=== PATIENT | male | born 1935 | race Caucasian/White ===

== ENCOUNTER 2024-09-03 10:40 | Inpatient (IN) | payer MEDICARE, OTHER, MEDICAID ==
[2024-09-03 11:13] LABS: BASOPHILS ABSOLUTE AUTO 0.02 K/uL (0.00-0.20); BASOPHILS PERCENT AUTO 0.1 % (0.0-2.0); EOSINOPHILS ABSOLUTE AUTO 0.19 K/uL (0.00-0.50); EOSINOPHILS PERCENT AUTO 0.7 % (0.0-5.0); HEMOGLOBIN 12.8 g/dL (13.1-16.8); IMMATURE GRAN ABSOLUTE AUTO 0.11 10^3/uL (0.00-0.04); IMMATURE GRAN PERCENT AUTO 0.4 % (0.0-0.4); LYMPHOCYTES ABSOLUTE AUTO 2.47 K/uL (0.50-3.50); LYMPHOCYTES PERCENT AUTO 8.5 % (10.0-50.0); MEAN CORPUSCULAR HEMOGLOBIN 25.7 pg (28.2-33.3); MEAN CORPUSCULAR VOLUME 80.3 fL (84.0-98.0); MONOCYTES ABSOLUTE AUTO 1.69 K/uL (0.00-1.00); MONOCYTES PERCENT AUTO 5.8 % (2.0-14.0); NEUTROPHILS ABSOLUTE AUTO 24.68 K/uL (1.40-7.00); NEUTROPHILS PERCENT AUTO 84.5 % (45.0-80.0); PLATELET COUNT,PLT 342 K/uL (150-350); RED BLOOD CELL COUNT 4.98 M/uL (4.33-5.41); WHITE BLOOD CELL COUNT,WBC 29.2 K/uL (4.0-10.2)
[2024-09-03] MEDS: Lidocaine 2% HCl 11 ML Jelly Filled Syringe TOP ONE (11:30)
[2024-09-03 11:34] LABS: ALANINE AMINOTRANSFERASE,ALT 7 U/L (12-78); ALBUMIN 2.7 g/dL (3.4-5.0); ALKALINE PHOSPHATASE 104 IU/L (46-116); ANION GAP 9.9 meq/L (7-15); ASPARTATE AMNIOTRANSFERASE,AST 19 U/L (15-37); BILIRUBIN TOTAL 0.5 mg/dL (0.2-1.0); BLOOD UREA NITROGEN,BUN 34 mg/dL (7-18); C-REACTIVE PROTEIN 4.46 mg/dL (0.05-0.30); CALCIUM 8.5 mg/dL (8.5-10.1); CARBON DIOXIDE,CO2 22.1 mmol/L (21.0-32.0); CHLORIDE,CL 107 mmol/L (98-107); CREATININE 1.61 mg/dL (0.51-1.17); GLUCOSE RANDOM 108 mg/dL (70-99); POTASSIUM,K 4.3 mmol/L (3.5-5.1); PROTEIN TOTAL,TP 6.8 g/dL (6.4-8.2); SODIUM,NA 139 mmol/L (136-145)
[2024-09-03 11:35] LABS: ESTIMATED GFR 41 mL/min (>=60)
[2024-09-03 11:39] LABS: LACTIC ACID 1.5 mmol/L (0.4-2.0)
[2024-09-03 11:45] LABS: APPEARANCE,URINE CLEAR; BILIRUBIN,URINE NEGATIVE (NEGATIVE); COLOR,URINE DARK YELLOW; GLUCOSE,URINE NEGATIVE (NEGATIVE); KETONES,URINE TRACE mg/dL (NEGATIVE); LEUKOCYTE ESTERASE,URINE SMALL (NEGATIVE); NITRITE,URINE NEGATIVE (NEGATIVE); OCCULT BLOOD,URINE NEGATIVE (NEGATIVE); PH,URINE 5.5 (5.0-9.0); PROTEIN,URINE NEGATIVE (NEGATIVE); UROBILINOGEN,URINE 0.2 E.U./dL (0.2-1.0)
[2024-09-03] MEDS: Sodium Chloride 0.9% 1,000 ML IV ONE (11:53)
[2024-09-03 11:54] LABS: EPITHELIAL CELLS,URINE RARE /LPF; RBC,URINE 0-5 /HPF
[2024-09-03] MEDS: Lidocaine 2% HCl 11 ML Jelly Filled Syringe ONE (11:54)
[2024-09-03 11:55] LABS: BACTERIA,URINE RARE /HPF (NONE TO FEW); MUCUS,URINE MODERATE /LPF (NEGATIVE); OTHER CRYSTALS,URINE FEW /HPF
[2024-09-03] MEDS: Levofloxacin/Dextrose 5%-Water 500 MG in Premix Bag 1 BAG IV ONE (12:05)
[2024-09-03] MEDS ORDERED: Polyethylene Glycol 3350 Powder 17 GM Packet PO PRN (12:24)
[2024-09-03] MEDS ORDERED: Ondansetron 4 MG Tab.DIS PO PRN (12:24)
[2024-09-03] MEDS: VANCOmycin 1 GM in Sodium Chloride 0.9% 250 ML IV ONE (14:16)
[2024-09-03] MEDS: Sodium Chloride 0.9% 10 ML Syringe FLUSH PRN (14:19)
[2024-09-03] MEDS ORDERED: Lactase [Lactaid] 3,000 UNIT Tablet PO PRN (15:33)
[2024-09-03] MEDS ORDERED: Polyvinyl Alcohol 1.4% Ophth Soln 15 ML Bottle EYEBOTH PRN (15:33)
[2024-09-03] MEDS ORDERED: Menthol 10%/Methyl Salicylate 15% 85 GM Tube TOP PRN (15:33)
[2024-09-03] MEDS: Doxycycline Monohydrate 100 MG Cap PO SCH (17:39)
[2024-09-03] MEDS: OLANZapine 5 MG Tab.DIS PO SCH (17:40)
[2024-09-03] MEDS: Calcium Carbonate/Vitamin D3 1500 MG-400 Units Tab PO SCH (17:40)
[2024-09-03] MEDS: Carbidopa/Levodopa 25-250 MG Tab PO SCH (17:42)
[2024-09-03] MEDS: Acetaminophen 650 MG Tab.ER PO SCH (17:42)
[2024-09-03] MEDS: Gabapentin 300 MG Cap PO SCH (17:42)
[2024-09-03] MEDS ORDERED: MICONAZOLE NITRATE 85 GM TOP SCH (18:00)
[2024-09-03] MEDS: Acetaminophen 325 MG Tab PO PRN (20:08)
[2024-09-03] MEDS: Sodium Chloride 0.9% 1,000 ML IV SCH (20:08)
[2024-09-03] MEDS: Famotidine 20 MG Tab PO SCH (20:08)
[2024-09-03] MEDS: Morphine 2 MG/ML SYRINGE IVPUSH PRN (20:08)
[2024-09-03] MEDS: Albuterol/Ipratropium 3.0-0.5 MG/3 ML Neb Soln INH PRN (22:57)
[2024-09-04] MEDS: amLODIPine 5 MG Tab PO SCH (07:36)
[2024-09-04] MEDS: Cholecalciferol (Vitamin D3) 25 MCG Tab PO SCH (07:38)
[2024-09-04] MEDS: FLUoxetine 20 MG Cap PO SCH (07:38)
[2024-09-04] MEDS: Fish Oil/Omega-3 Fatty Acids 1 Gm Cap PO SCH (07:39)
[2024-09-04] MEDS: Multivitamin Tab PO SCH (07:39)
[2024-09-04] MEDS: Enoxaparin 40 MG/0.4 ML Syringe SUBCUT SCH (07:39)
[2024-09-04] MEDS: Tamsulosin 0.4 MG Cap.ER PO SCH (07:41)
[2024-09-04] MEDS: Polyethylene Glycol 3350 Powder 17 GM Packet PO SCH (07:41)
[2024-09-04] MEDS: Finasteride 5 MG Tab PO SCH (07:42)
[2024-09-04 07:48] LABS: BASOPHILS ABSOLUTE AUTO 0.02 K/uL (0.00-0.20); BASOPHILS PERCENT AUTO 0.1 % (0.0-2.0); EOSINOPHILS ABSOLUTE AUTO 0.37 K/uL (0.00-0.50); EOSINOPHILS PERCENT AUTO 2.4 % (0.0-5.0); HEMATOCRIT 42.3 % (39.0-49.0); HEMOGLOBIN 13.2 g/dL (13.1-16.8); IMMATURE GRAN ABSOLUTE AUTO 0.05 10^3/uL (0.00-0.04); IMMATURE GRAN PERCENT AUTO 0.3 % (0.0-0.4); LYMPHOCYTES PERCENT AUTO 9.6 % (10.0-50.0); MEAN CORPUSCULAR HEMOGLOBIN 25.7 pg (28.2-33.3); MEAN CORPUSCULAR HGB CONC 31.2 g/dL (31.7-36.0); MEAN CORPUSCULAR VOLUME 82.5 fL (84.0-98.0); MONOCYTES ABSOLUTE AUTO 1.34 K/uL (0.00-1.00); MONOCYTES PERCENT AUTO 8.6 % (2.0-14.0); NEUTROPHILS ABSOLUTE AUTO 12.33 K/uL (1.40-7.00); PLATELET COUNT,PLT 244 K/uL (150-350); RED BLOOD CELL COUNT 5.13 M/uL (4.33-5.41); RED CELL DISTRIBUTION WIDTH 16.5 % (11.2-14.1); WHITE BLOOD CELL COUNT,WBC 15.6 K/uL (4.0-10.2)
[2024-09-04 08:02] LABS: ALBUMIN 2.5 g/dL (3.4-5.0); BILIRUBIN TOTAL 2.4 mg/dL (0.2-1.0); C-REACTIVE PROTEIN 10.9 mg/dL (0.05-0.30); CALCIUM 8.4 mg/dL (8.5-10.1); CARBON DIOXIDE,CO2 19.1 mmol/L (21.0-32.0); CREATININE 1.39 mg/dL (0.51-1.17); EST CRCL DRUG DOSING (CG) 36.73 mL/min; POTASSIUM,K 4.3 mmol/L (3.5-5.1); PROTEIN TOTAL,TP 6.7 g/dL (6.4-8.2)
[2024-09-04 08:05] LABS: ANION GAP 16.2 meq/L (7-15)
[2024-09-04] MEDS: RIVASTIGMINE TARTRATE 6 MG PO SCH (11:27)
[2024-09-04] MEDS ORDERED: Levofloxacin/Dextrose 5%-Water 250 MG in Premix Bag 1 BAG IV SCH (12:00)
[2024-09-04] MEDS: Levofloxacin/Dextrose 5%-Water 750 MG in Premix Bag 1 BAG IV SCH (12:01)
[2024-09-04] MEDS: traMADol 50 MG Tab PO PRN (12:16)
[2024-09-04] MEDS ORDERED: Levofloxacin/Dextrose 5%-Water 500 MG in Premix Bag 1 BAG IV SCH (12:30)
[2024-09-04] MEDS: VANCOmycin 1 GM in Sodium Chloride 0.9% 250 ML IV SCH (14:35)
[2024-09-05] MEDS: Ondansetron 4 MG/2 ML SDV IVPUSH PRN (07:51)
[2024-09-05 08:16] LABS: ALBUMIN 2.5 g/dL (3.4-5.0); ANION GAP 13.6 meq/L (7-15); BILIRUBIN TOTAL 1.2 mg/dL (0.2-1.0); C-REACTIVE PROTEIN 7.87 mg/dL (0.05-0.30); CALCIUM 8.4 mg/dL (8.5-10.1); CREATININE 1.42 mg/dL (0.51-1.17); EST CRCL DRUG DOSING (CG) 35.96 mL/min; POTASSIUM,K 3.6 mmol/L (3.5-5.1); PROTEIN TOTAL,TP 6.5 g/dL (6.4-8.2)
[2024-09-05 08:18] LABS: BASOPHILS ABSOLUTE AUTO 0.03 K/uL (0.00-0.20); BASOPHILS PERCENT AUTO 0.2 % (0.0-2.0); EOSINOPHILS ABSOLUTE AUTO 0.62 K/uL (0.00-0.50); EOSINOPHILS PERCENT AUTO 5.1 % (0.0-5.0); HEMATOCRIT 38.9 % (39.0-49.0); HEMOGLOBIN 12.4 g/dL (13.1-16.8); IMMATURE GRAN ABSOLUTE AUTO 0.06 10^3/uL (0.00-0.04); IMMATURE GRAN PERCENT AUTO 0.5 % (0.0-0.4); LYMPHOCYTES ABSOLUTE AUTO 3.27 K/uL (0.50-3.50); MEAN CORPUSCULAR HEMOGLOBIN 25.7 pg (28.2-33.3); MEAN CORPUSCULAR HGB CONC 31.9 g/dL (31.7-36.0); MEAN CORPUSCULAR VOLUME 80.5 fL (84.0-98.0); MONOCYTES ABSOLUTE AUTO 1.25 K/uL (0.00-1.00); MONOCYTES PERCENT AUTO 10.3 % (2.0-14.0); NEUTROPHILS ABSOLUTE AUTO 6.89 K/uL (1.40-7.00); NEUTROPHILS PERCENT AUTO 56.9 % (45.0-80.0); PLATELET COUNT,PLT 339 K/uL (150-350); RED BLOOD CELL COUNT 4.83 M/uL (4.33-5.41); RED CELL DISTRIBUTION WIDTH 16.5 % (11.2-14.1); WHITE BLOOD CELL COUNT,WBC 12.1 K/uL (4.0-10.2)
[2024-09-06 08:18] LABS: BASOPHILS ABSOLUTE AUTO 0.05 K/uL (0.00-0.20); BASOPHILS PERCENT AUTO 0.5 % (0.0-2.0); EOSINOPHILS ABSOLUTE AUTO 0.57 K/uL (0.00-0.50); EOSINOPHILS PERCENT AUTO 5.7 % (0.0-5.0); HEMATOCRIT 41.3 % (39.0-49.0); IMMATURE GRAN ABSOLUTE AUTO 0.04 10^3/uL (0.00-0.04); IMMATURE GRAN PERCENT AUTO 0.4 % (0.0-0.4); LYMPHOCYTES ABSOLUTE AUTO 3.19 K/uL (0.50-3.50); LYMPHOCYTES PERCENT AUTO 31.9 % (10.0-50.0); MEAN CORPUSCULAR HEMOGLOBIN 25.7 pg (28.2-33.3); MEAN CORPUSCULAR HGB CONC 31.5 g/dL (31.7-36.0); MEAN CORPUSCULAR VOLUME 81.6 fL (84.0-98.0); NEUTROPHILS ABSOLUTE AUTO 5.26 K/uL (1.40-7.00); NEUTROPHILS PERCENT AUTO 52.5 % (45.0-80.0); PLATELET COUNT,PLT 344 K/uL (150-350); RED BLOOD CELL COUNT 5.06 M/uL (4.33-5.41); RED CELL DISTRIBUTION WIDTH 16.7 % (11.2-14.1)
[2024-09-06 08:47] LABS: ALBUMIN 2.6 g/dL (3.4-5.0); ANION GAP 16.3 meq/L (7-15); BILIRUBIN TOTAL 0.7 mg/dL (0.2-1.0); C-REACTIVE PROTEIN 4.39 mg/dL (0.05-0.30); CALCIUM 8.7 mg/dL (8.5-10.1); CARBON DIOXIDE,CO2 19.9 mmol/L (21.0-32.0); CREATININE 1.34 mg/dL (0.51-1.17); EST CRCL DRUG DOSING (CG) 38.11 mL/min; POTASSIUM,K 4.2 mmol/L (3.5-5.1); PROTEIN TOTAL,TP 6.7 g/dL (6.4-8.2)
== END 2024-09-06 13:50 | DRG 603 ==
LOC: LL.ED 10:40 → LL.MS 12:22
PROVIDERS: ADMIT Physician Assistant Medical; ATTEND Physician Assistant Medical
DX: L03.116 Cellulitis of left lower limb (principal); N17.9 Acute kidney failure, unspecified; S91.302A Unspecified open wound, left foot, initial encounter; J44.9 Chronic obstructive pulmonary disease, unspecified; F03.90 Unspecified dementia, unspecified severity, without behavioral disturbance, psychotic disturbance, mood disturbance, and anxiety; H91.90 Unspecified hearing loss, unspecified ear; H54.7 Unspecified visual loss; E78.00 Pure hypercholesterolemia, unspecified; K59.09 Other constipation; K21.9 Gastro-esophageal reflux disease without esophagitis; Z91.011 Allergy to milk products; N40.0 Benign prostatic hyperplasia without lower urinary tract symptoms; Z88.1 Allergy status to other antibiotic agents; M19.90 Unspecified osteoarthritis, unspecified site; G47.00 Insomnia, unspecified; F32.A Depression, unspecified; D63.1 Anemia in chronic kidney disease; I12.9 Hypertensive chronic kidney disease with stage 1 through stage 4 chronic kidney disease, or unspecified chronic kidney disease; N18.32 Chronic kidney disease, stage 3b; D72.829 Elevated white blood cell count, unspecified; Z66 Do not resuscitate; G20.A1 Parkinson's disease without dyskinesia, without mention of fluctuations; F02.80 Dementia in other diseases classified elsewhere, unspecified severity, without behavioral disturbance, psychotic disturbance, mood disturbance, and anxiety; F31.9 Bipolar disorder, unspecified; G89.29 Other chronic pain; Z88.0 Allergy status to penicillin; Z88.2 Allergy status to sulfonamides; Z88.8 Allergy status to other drugs, medicaments and biological substances; Z79.1 Long term (current) use of non-steroidal anti-inflammatories (NSAID); Z79.51 Long term (current) use of inhaled steroids; Z79.2 Long term (current) use of antibiotics; Z79.899 Other long term (current) drug therapy; Z87.440 Personal history of urinary (tract) infections; Z87.891 Personal history of nicotine dependence
CPT/HCPCS: 36415; 51702; 71045; 73630-LT; 80053; 80202; 81001; 83605; 83880; 84484; 85025; 86140; 87040; 87070; 87086; 87205; 87428-QW; 93005; 94640; 96365; 99285-25; A9270-GY; J1650; J1956; J2270; J2405; J7030; J7050; J7620-GY

== ENCOUNTER 2024-09-09 09:15 | Emergency (ER) | payer MEDICARE, OTHER, MEDICAID ==
[2024-09-09] MEDS ORDERED: Sodium Chloride 0.9% 10 ML Syringe FLUSH PRN (09:34)
[2024-09-09 09:35] LABS: BASOPHILS ABSOLUTE AUTO 0.03 K/uL (0.00-0.20); BASOPHILS PERCENT AUTO 0.2 % (0.0-2.0); EOSINOPHILS ABSOLUTE AUTO 0.78 K/uL (0.00-0.50); EOSINOPHILS PERCENT AUTO 5.8 % (0.0-5.0); HEMATOCRIT 43.2 % (39.0-49.0); HEMOGLOBIN 13.5 g/dL (13.1-16.8); IMMATURE GRAN ABSOLUTE AUTO 0.15 10^3/uL (0.00-0.04); IMMATURE GRAN PERCENT AUTO 1.1 % (0.0-0.4); LYMPHOCYTES ABSOLUTE AUTO 2.49 K/uL (0.50-3.50); LYMPHOCYTES PERCENT AUTO 18.5 % (10.0-50.0); MEAN CORPUSCULAR HEMOGLOBIN 25.7 pg (28.2-33.3); MEAN CORPUSCULAR HGB CONC 31.3 g/dL (31.7-36.0); MEAN CORPUSCULAR VOLUME 82.3 fL (84.0-98.0); MONOCYTES ABSOLUTE AUTO 1.18 K/uL (0.00-1.00); MONOCYTES PERCENT AUTO 8.8 % (2.0-14.0); NEUTROPHILS ABSOLUTE AUTO 8.84 K/uL (1.40-7.00); NEUTROPHILS PERCENT AUTO 65.6 % (45.0-80.0); PLATELET COUNT,PLT 391 K/uL (150-350); RED BLOOD CELL COUNT 5.25 M/uL (4.33-5.41); RED CELL DISTRIBUTION WIDTH 17.2 % (11.2-14.1); WHITE BLOOD CELL COUNT,WBC 13.5 K/uL (4.0-10.2)
[2024-09-09 10:01] LABS: LACTIC ACID 2.1 mmol/L (0.4-2.0)
[2024-09-09 10:02] LABS: ALBUMIN 2.7 g/dL (3.4-5.0); BILIRUBIN TOTAL 0.4 mg/dL (0.2-1.0); CALCIUM 8.6 mg/dL (8.5-10.1); CARBON DIOXIDE,CO2 25.1 mmol/L (21.0-32.0); CREATININE 1.57 mg/dL (0.51-1.17); POTASSIUM,K 4.7 mmol/L (3.5-5.1); PROTEIN TOTAL,TP 6.9 g/dL (6.4-8.2)
[2024-09-09 10:09] LABS: ANION GAP 10.6 meq/L (7-15); EST CRCL DRUG DOSING (CG) 32.52 mL/min
[2024-09-09] MEDS: Lactated Ringers 1,000 ML IV SCH (10:27)
[2024-09-09] MEDS: HYDROmorphone 0.5 MG/0.5 ML Syringe IVPUSH PRN (11:15)
[2024-09-09] MEDS: DAPTOmycin 500 MG in Sodium Chloride 0.9% 100 ML IV SCH (14:55)
[2024-09-09] MEDS: HYDROmorphone 0.5 MG/0.5 ML Syringe IVPUSH ONE (17:20)
== END 2024-09-09 18:10 ==
LOC: LL.ED 09:15
DX: L03.116 Cellulitis of left lower limb (principal); I10 Essential (primary) hypertension; E78.00 Pure hypercholesterolemia, unspecified; J44.9 Chronic obstructive pulmonary disease, unspecified; K21.9 Gastro-esophageal reflux disease without esophagitis; Z79.899 Other long term (current) drug therapy; Z88.8 Allergy status to other drugs, medicaments and biological substances; Z88.2 Allergy status to sulfonamides; Z88.0 Allergy status to penicillin
CPT/HCPCS: 11042; 36415; 73650-LT; 80053; 82550; 83605; 83880; 85025; 85652; 86140; 87428-QW; 96361; 96365; 96375; 96376; 99285-25; J0878; J7120

== ENCOUNTER 2024-09-21 21:30 | Inpatient (IN) | payer MEDICARE, MEDICAID, OTHER ==
[2024-09-21 21:47] LABS: BASOPHILS ABSOLUTE AUTO 0.03 K/uL (0.00-0.20); BASOPHILS PERCENT AUTO 0.1 % (0.0-2.0); EOSINOPHILS PERCENT AUTO 1.3 % (0.0-5.0); HEMATOCRIT 39.8 % (39.0-49.0); HEMOGLOBIN 12.9 g/dL (13.1-16.8); IMMATURE GRAN ABSOLUTE AUTO 0.07 10^3/uL (0.00-0.04); IMMATURE GRAN PERCENT AUTO 0.3 % (0.0-0.4); LYMPHOCYTES ABSOLUTE AUTO 3.72 K/uL (0.50-3.50); LYMPHOCYTES PERCENT AUTO 15.6 % (10.0-50.0); MEAN CORPUSCULAR HEMOGLOBIN 26.4 pg (28.2-33.3); MEAN CORPUSCULAR HGB CONC 32.4 g/dL (31.7-36.0); MEAN CORPUSCULAR VOLUME 81.4 fL (84.0-98.0); MONOCYTES ABSOLUTE AUTO 1.21 K/uL (0.00-1.00); MONOCYTES PERCENT AUTO 5.1 % (2.0-14.0); NEUTROPHILS ABSOLUTE AUTO 18.53 K/uL (1.40-7.00); NEUTROPHILS PERCENT AUTO 77.6 % (45.0-80.0); PLATELET COUNT,PLT 398 K/uL (150-350); RED BLOOD CELL COUNT 4.89 M/uL (4.33-5.41); RED CELL DISTRIBUTION WIDTH 17.1 % (11.2-14.1); WHITE BLOOD CELL COUNT,WBC 23.9 K/uL (4.0-10.2)
[2024-09-21] MEDS: Albuterol/Ipratropium 3.0-0.5 MG/3 ML Neb Soln NEB ONE (22:12)
[2024-09-21 22:14] LABS: LACTIC ACID 1.1 mmol/L (0.4-2.0)
[2024-09-21 22:16] LABS: ALANINE AMINOTRANSFERASE,ALT 12 U/L (12-78); ALBUMIN 3.1 g/dL (3.4-5.0); ALKALINE PHOSPHATASE 93 IU/L (46-116); ANION GAP 12.6 meq/L (7-15); ASPARTATE AMNIOTRANSFERASE,AST 14 U/L (15-37); BILIRUBIN TOTAL 0.6 mg/dL (0.2-1.0); BLOOD UREA NITROGEN,BUN 43 mg/dL (7-18); CALCIUM 8.8 mg/dL (8.5-10.1); CARBON DIOXIDE,CO2 22.4 mmol/L (21.0-32.0); CHLORIDE,CL 105 mmol/L (98-107); CREATININE 1.67 mg/dL (0.51-1.17); ESTIMATED GFR 39 mL/min (>=60); GLUCOSE RANDOM 132 mg/dL (70-99); MAGNESIUM 1.9 mg/dL (1.8-2.4); POTASSIUM,K 4.1 mmol/L (3.5-5.1); PRO B-TYPE NATRIUR PEPT,BNPPRO 1717 pg/mL (0-125); PROTEIN TOTAL,TP 7.4 g/dL (6.4-8.2); SODIUM,NA 140 mmol/L (136-145)
[2024-09-21 22:27] LABS: INR 1.1 (0.9-1.1); PROTHROMBIN TIME 11.1 SEC (9.0-11.1)
[2024-09-21] MEDS ORDERED: Menthol 10%/Methyl Salicylate 15% 85 GM Tube TOP PRN (23:36)
[2024-09-21] MEDS ORDERED: Polyvinyl Alcohol 1.4% Ophth Soln 15 ML Bottle EYEBOTH PRN (23:36)
[2024-09-21] MEDS ORDERED: Albuterol/Ipratropium 3.0-0.5 MG/3 ML Neb Soln INH PRN ×2 (23:36→23:48)
[2024-09-21] MEDS: Levofloxacin/Dextrose 5%-Water 750 MG in Premix Bag 1 BAG IV SCH (23:43)
[2024-09-21] MEDS ORDERED: VANCOmycin 1.75 GM/350 ML 1.75 GM in Premix Bag 1 BAG IV ONE (23:45)
[2024-09-21] MEDS: Sodium Chloride 0.9% 10 ML Syringe FLUSH PRN (23:48)
[2024-09-21] MEDS: Polyethylene Glycol 3350 Powder 17 GM Packet PO SCH (23:59)
[2024-09-22] MEDS: VANCOmycin 1.75 GM/350 ML 1.75 GM in Premix Bag 1 BAG IV ONE (01:21)
[2024-09-22] MEDS: Acetaminophen 325 MG Tab PO PRN (03:37)
[2024-09-22] MEDS: Lactated Ringers 1,000 ML IV ONE (03:48)
[2024-09-22 07:10] LABS: BASOPHILS ABSOLUTE AUTO 0.03 K/uL (0.00-0.20); BASOPHILS PERCENT AUTO 0.2 % (0.0-2.0); HEMATOCRIT 35.5 % (39.0-49.0); HEMOGLOBIN 11.4 g/dL (13.1-16.8); IMMATURE GRAN ABSOLUTE AUTO 0.05 10^3/uL (0.00-0.04); IMMATURE GRAN PERCENT AUTO 0.3 % (0.0-0.4); LYMPHOCYTES ABSOLUTE AUTO 3.28 K/uL (0.50-3.50); LYMPHOCYTES PERCENT AUTO 22.1 % (10.0-50.0); MEAN CORPUSCULAR HEMOGLOBIN 26.1 pg (28.2-33.3); MEAN CORPUSCULAR HGB CONC 32.1 g/dL (31.7-36.0); MEAN CORPUSCULAR VOLUME 81.4 fL (84.0-98.0); MONOCYTES ABSOLUTE AUTO 1.31 K/uL (0.00-1.00); MONOCYTES PERCENT AUTO 8.8 % (2.0-14.0); NEUTROPHILS ABSOLUTE AUTO 9.56 K/uL (1.40-7.00); NEUTROPHILS PERCENT AUTO 64.6 % (45.0-80.0); PLATELET COUNT,PLT 353 K/uL (150-350); RED BLOOD CELL COUNT 4.36 M/uL (4.33-5.41); RED CELL DISTRIBUTION WIDTH 16.9 % (11.2-14.1); WHITE BLOOD CELL COUNT,WBC 14.8 K/uL (4.0-10.2)
[2024-09-22 07:54] LABS: ALBUMIN 2.4 g/dL (3.4-5.0); BILIRUBIN TOTAL 0.5 mg/dL (0.2-1.0); CALCIUM 8.2 mg/dL (8.5-10.1); CARBON DIOXIDE,CO2 20.2 mmol/L (21.0-32.0); CREATININE 1.41 mg/dL (0.51-1.17); EST CRCL DRUG DOSING (CG) 37.39 mL/min; MAGNESIUM 1.9 mg/dL (1.8-2.4); POTASSIUM,K 3.9 mmol/L (3.5-5.1); PROTEIN TOTAL,TP 6.3 g/dL (6.4-8.2)
[2024-09-22 07:58] LABS: ANION GAP 17.7 meq/L (7-15)
[2024-09-22] MEDS: FLUoxetine 20 MG Cap PO SCH (08:13)
[2024-09-22] MEDS: Cholecalciferol (Vitamin D3) 25 MCG Tab PO SCH (08:13)
[2024-09-22] MEDS: Fish Oil/Omega-3 Fatty Acids 1 Gm Cap PO SCH (08:13)
[2024-09-22] MEDS: Multivitamin Tab PO SCH (08:13)
[2024-09-22] MEDS: Polyethylene Glycol 3350 Powder 17 GM Packet PO SCH (08:13)
[2024-09-22] MEDS: Finasteride 5 MG Tab PO SCH (08:14)
[2024-09-22] MEDS: Tamsulosin 0.4 MG Cap.ER PO SCH (08:14)
[2024-09-22] MEDS: OLANZapine 5 MG Tab.DIS PO SCH (08:14)
[2024-09-22] MEDS: Carbidopa/Levodopa 25-250 MG Tab PO SCH (08:14)
[2024-09-22] MEDS: Benzonatate 100 MG Cap PO SCH (08:14)
[2024-09-22] MEDS: amLODIPine 5 MG Tab PO SCH (08:14)
[2024-09-22] MEDS: Gabapentin 300 MG Cap PO SCH (08:14)
[2024-09-22 09:02] LABS: INR 1.2 (0.9-1.1); PROTHROMBIN TIME 11.8 SEC (9.0-11.1)
[2024-09-22] MEDS: Acetaminophen/HYDROcodone 325-5 MG Tab PO PRN (09:23)
[2024-09-22] MEDS: metroNIDAZOLE/Normal Saline 500 MG in Premix Bag 1 BAG IV SCH (13:10)
[2024-09-22] MEDS: RIVASTIGMINE TARTRATE 6 MG PO SCH (18:13)
[2024-09-22] MEDS: Famotidine 20 MG Tab PO SCH (19:50)
[2024-09-23] MEDS: VANCOmycin 1 GM in Sodium Chloride 0.9% 250 ML IV SCH (01:19)
[2024-09-23 07:24] LABS: BASOPHILS ABSOLUTE AUTO 0.03 K/uL (0.00-0.20); BASOPHILS PERCENT AUTO 0.3 % (0.0-2.0); EOSINOPHILS ABSOLUTE AUTO 1.12 K/uL (0.00-0.50); EOSINOPHILS PERCENT AUTO 10.2 % (0.0-5.0); HEMOGLOBIN 12.1 g/dL (13.1-16.8); IMMATURE GRAN ABSOLUTE AUTO 0.08 10^3/uL (0.00-0.04); IMMATURE GRAN PERCENT AUTO 0.7 % (0.0-0.4); LYMPHOCYTES ABSOLUTE AUTO 2.46 K/uL (0.50-3.50); LYMPHOCYTES PERCENT AUTO 22.3 % (10.0-50.0); MEAN CORPUSCULAR HGB CONC 31.8 g/dL (31.7-36.0); MEAN CORPUSCULAR VOLUME 81.5 fL (84.0-98.0); MONOCYTES ABSOLUTE AUTO 1.05 K/uL (0.00-1.00); MONOCYTES PERCENT AUTO 9.5 % (2.0-14.0); NEUTROPHILS ABSOLUTE AUTO 6.29 K/uL (1.40-7.00); PLATELET COUNT,PLT 376 K/uL (150-350); RED BLOOD CELL COUNT 4.66 M/uL (4.33-5.41); RED CELL DISTRIBUTION WIDTH 17.3 % (11.2-14.1)
[2024-09-23 07:44] LABS: INR 1.1 (0.9-1.1); PROTHROMBIN TIME 11.1 SEC (9.0-11.1)
[2024-09-23 07:46] LABS: ALBUMIN 2.6 g/dL (3.4-5.0); BILIRUBIN TOTAL 0.5 mg/dL (0.2-1.0); CALCIUM 8.6 mg/dL (8.5-10.1); CARBON DIOXIDE,CO2 22.4 mmol/L (21.0-32.0); CREATININE 1.33 mg/dL (0.51-1.17); EST CRCL DRUG DOSING (CG) 39.64 mL/min; MAGNESIUM 1.9 mg/dL (1.8-2.4); POTASSIUM,K 4.1 mmol/L (3.5-5.1); PROTEIN TOTAL,TP 6.4 g/dL (6.4-8.2)
[2024-09-23 07:55] LABS: ANION GAP 14.7 meq/L (7-15)
[2024-09-24 06:58] LABS: BASOPHILS ABSOLUTE AUTO 0.03 K/uL (0.00-0.20); BASOPHILS PERCENT AUTO 0.3 % (0.0-2.0); EOSINOPHILS ABSOLUTE AUTO 0.99 K/uL (0.00-0.50); EOSINOPHILS PERCENT AUTO 8.7 % (0.0-5.0); HEMATOCRIT 37.6 % (39.0-49.0); IMMATURE GRAN ABSOLUTE AUTO 0.12 10^3/uL (0.00-0.04); IMMATURE GRAN PERCENT AUTO 1.1 % (0.0-0.4); LYMPHOCYTES ABSOLUTE AUTO 3.06 K/uL (0.50-3.50); LYMPHOCYTES PERCENT AUTO 26.9 % (10.0-50.0); MEAN CORPUSCULAR HGB CONC 31.9 g/dL (31.7-36.0); MEAN CORPUSCULAR VOLUME 81.4 fL (84.0-98.0); MONOCYTES ABSOLUTE AUTO 1.22 K/uL (0.00-1.00); MONOCYTES PERCENT AUTO 10.7 % (2.0-14.0); NEUTROPHILS ABSOLUTE AUTO 5.96 K/uL (1.40-7.00); NEUTROPHILS PERCENT AUTO 52.3 % (45.0-80.0); PLATELET COUNT,PLT 362 K/uL (150-350); RED BLOOD CELL COUNT 4.62 M/uL (4.33-5.41); WHITE BLOOD CELL COUNT,WBC 11.4 K/uL (4.0-10.2)
[2024-09-24 07:17] LABS: INR 1.2 (0.9-1.1); PROTHROMBIN TIME 12.1 SEC (9.0-11.1)
[2024-09-24 07:31] LABS: ALBUMIN 2.5 g/dL (3.4-5.0); BILIRUBIN TOTAL 0.5 mg/dL (0.2-1.0); CALCIUM 8.3 mg/dL (8.5-10.1); CREATININE 1.42 mg/dL (0.51-1.17); EST CRCL DRUG DOSING (CG) 37.13 mL/min; MAGNESIUM 1.9 mg/dL (1.8-2.4); POTASSIUM,K 4.3 mmol/L (3.5-5.1); PROTEIN TOTAL,TP 6.4 g/dL (6.4-8.2)
[2024-09-24 07:37] LABS: ANION GAP 16.3 meq/L (7-15)
== END 2024-09-24 11:14 | DRG 178 ==
LOC: LL.ED 21:30 → LL.MS 22:56 → UNDOADMIN 23:00
PROVIDERS: ADMIT Physician Assistant; ATTEND Physician Assistant
DX: J69.0 Pneumonitis due to inhalation of food and vomit (principal); F02.84 Dementia in other diseases classified elsewhere, unspecified severity, with anxiety; I12.9 Hypertensive chronic kidney disease with stage 1 through stage 4 chronic kidney disease, or unspecified chronic kidney disease; J44.0 Chronic obstructive pulmonary disease with (acute) lower respiratory infection; J44.9 Chronic obstructive pulmonary disease, unspecified; G20.B1 Parkinson's disease with dyskinesia, without mention of fluctuations; F03.90 Unspecified dementia, unspecified severity, without behavioral disturbance, psychotic disturbance, mood disturbance, and anxiety; J18.9 Pneumonia, unspecified organism; D72.829 Elevated white blood cell count, unspecified; Z79.2 Long term (current) use of antibiotics; N18.9 Chronic kidney disease, unspecified; N40.0 Benign prostatic hyperplasia without lower urinary tract symptoms; H91.90 Unspecified hearing loss, unspecified ear; Z88.1 Allergy status to other antibiotic agents; H54.7 Unspecified visual loss; E78.00 Pure hypercholesterolemia, unspecified; K59.09 Other constipation; K21.9 Gastro-esophageal reflux disease without esophagitis; M19.90 Unspecified osteoarthritis, unspecified site; G47.00 Insomnia, unspecified; F31.9 Bipolar disorder, unspecified; G20.A1 Parkinson's disease without dyskinesia, without mention of fluctuations; Z66 Do not resuscitate; F39 Unspecified mood [affective] disorder; Z87.442 Personal history of urinary calculi; Z85.828 Personal history of other malignant neoplasm of skin; Z88.0 Allergy status to penicillin; Z88.2 Allergy status to sulfonamides; Z88.8 Allergy status to other drugs, medicaments and biological substances; Z79.1 Long term (current) use of non-steroidal anti-inflammatories (NSAID); Z79.899 Other long term (current) drug therapy; Z79.51 Long term (current) use of inhaled steroids; S91.302S Unspecified open wound, left foot, sequela
CPT/HCPCS: 36415; 71045; 73630-LT; 80053; 80202; 83605; 83735; 83880; 85025; 85610; 87040; 87428-QW; 99223; 99232; 99233; 99239; 99285; A9270-GY; J1836; J1956; J3260; J3372; J7120; J7620-GY

== ENCOUNTER 2024-11-03 15:16 | Emergency (ER) | payer MEDICARE, OTHER, MEDICAID ==
[2024-11-03] MEDS ORDERED: DAPTOmycin 500 MG in Sodium Chloride 0.9% 100 ML IV ONE (17:38)
[2024-11-03] MEDS ORDERED: Sodium Chloride 0.9% 10 ML Syringe FLUSH PRN (17:43)
[2024-11-03] MEDS: DAPTOmycin 500 MG Vial ONE (18:01)
[2024-11-03] MEDS: DAPTOmycin 500 MG in Sodium Chloride 0.9% 100 ML IV ONE (18:05)
== END 2024-11-03 19:00 ==
LOC: LL.ED 15:16
DX: M86.672 Other chronic osteomyelitis, left ankle and foot (principal); S91.302S Unspecified open wound, left foot, sequela; I12.9 Hypertensive chronic kidney disease with stage 1 through stage 4 chronic kidney disease, or unspecified chronic kidney disease; N18.9 Chronic kidney disease, unspecified; E78.00 Pure hypercholesterolemia, unspecified; J44.9 Chronic obstructive pulmonary disease, unspecified; Z88.0 Allergy status to penicillin; Z88.8 Allergy status to other drugs, medicaments and biological substances; Z88.2 Allergy status to sulfonamides; Z79.899 Other long term (current) drug therapy
CPT/HCPCS: 73650-LT; 87070; 87205; 96365; 99283; 99284-25; J0878

== ENCOUNTER 2024-11-19 21:20 | Emergency (ER) | payer MEDICARE, OTHER, MEDICAID ==
[2024-11-19] MEDS: cloNIDine 0.1 MG Tab PO ONE (21:41)
[2024-11-19 22:05] LABS: BASOPHILS ABSOLUTE AUTO 0.02 K/uL (0.00-0.20); BASOPHILS PERCENT AUTO 0.1 % (0.0-2.0); EOSINOPHILS ABSOLUTE AUTO 0.06 K/uL (0.00-0.50); EOSINOPHILS PERCENT AUTO 0.2 % (0.0-5.0); HEMATOCRIT 44.4 % (39.0-49.0); IMMATURE GRAN ABSOLUTE AUTO 0.05 10^3/uL (0.00-0.04); IMMATURE GRAN PERCENT AUTO 0.2 % (0.0-0.4); LYMPHOCYTES ABSOLUTE AUTO 2.95 K/uL (0.50-3.50); LYMPHOCYTES PERCENT AUTO 11.7 % (10.0-50.0); MEAN CORPUSCULAR HGB CONC 31.5 g/dL (31.7-36.0); MEAN CORPUSCULAR VOLUME 82.5 fL (84.0-98.0); MONOCYTES ABSOLUTE AUTO 1.75 K/uL (0.00-1.00); NEUTROPHILS ABSOLUTE AUTO 20.34 K/uL (1.40-7.00); NEUTROPHILS PERCENT AUTO 80.8 % (45.0-80.0); PLATELET COUNT,PLT 329 K/uL (150-350); RED BLOOD CELL COUNT 5.38 M/uL (4.33-5.41); RED CELL DISTRIBUTION WIDTH 16.2 % (11.2-14.1); WHITE BLOOD CELL COUNT,WBC 25.2 K/uL (4.0-10.2)
[2024-11-19 22:10] LABS: INR 1.1
[2024-11-19 22:26] LABS: ALANINE AMINOTRANSFERASE,ALT 35 U/L (12-78); ALBUMIN 2.8 g/dL (3.4-5.0); ALKALINE PHOSPHATASE 101 IU/L (46-116); ANION GAP 8.5 meq/L (7-15); ASPARTATE AMNIOTRANSFERASE,AST 22 U/L (15-37); BILIRUBIN TOTAL 0.6 mg/dL (0.2-1.0); BLOOD UREA NITROGEN,BUN 31 mg/dL (7-18); CARBON DIOXIDE,CO2 24.5 mmol/L (21.0-32.0); CHLORIDE,CL 103 mmol/L (98-107); CREATININE 1.39 mg/dL (0.51-1.17); ESTIMATED GFR 49 mL/min (>=60); GLUCOSE RANDOM 129 mg/dL (70-99); POTASSIUM,K 4.3 mmol/L (3.5-5.1); PROTEIN TOTAL,TP 7.4 g/dL (6.4-8.2); SODIUM,NA 136 mmol/L (136-145)
[2024-11-19 22:30] LABS: LACTIC ACID 1.8 mmol/L (0.4-2.0)
[2024-11-19] MEDS: Lactated Ringers 1,000 ML IV ONE (22:57)
[2024-11-19] MEDS: Acetaminophen 325 MG Tab PO ONE (22:58)
[2024-11-19 23:42] LABS: APPEARANCE,URINE CLEAR; BACTERIA,URINE NOT SEEN /HPF (NONE TO FEW); BILIRUBIN,URINE NEGATIVE (NEGATIVE); COLOR,URINE YELLOW; EPITHELIAL CELLS,URINE NOT SEEN /LPF; GLUCOSE,URINE NEGATIVE (NEGATIVE); KETONES,URINE NEGATIVE (NEGATIVE); LEUKOCYTE ESTERASE,URINE NEGATIVE (NEGATIVE); NITRITE,URINE NEGATIVE (NEGATIVE); OCCULT BLOOD,URINE NEGATIVE (NEGATIVE); PROTEIN,URINE TRACE mg/dL (NEGATIVE); RBC,URINE 0-5 /HPF; UROBILINOGEN,URINE 0.2 E.U./dL (0.2-1.0); WBC,URINE 0-5 /HPF
[2024-11-19 23:43] LABS: OTHER CRYSTALS,URINE MODERATE /HPF
== END 2024-11-20 01:10 ==
LOC: LL.ED 21:20
DX: E86.0 Dehydration (principal); D72.829 Elevated white blood cell count, unspecified; I12.9 Hypertensive chronic kidney disease with stage 1 through stage 4 chronic kidney disease, or unspecified chronic kidney disease; E66.9 Obesity, unspecified; J44.9 Chronic obstructive pulmonary disease, unspecified; M19.90 Unspecified osteoarthritis, unspecified site; N18.9 Chronic kidney disease, unspecified; Z88.0 Allergy status to penicillin; Z88.2 Allergy status to sulfonamides; Z88.8 Allergy status to other drugs, medicaments and biological substances; Z79.899 Other long term (current) drug therapy
CPT/HCPCS: 36415; 80053; 81001; 83605; 83735; 85025; 85610; 87428-QW; 96360; 96361; 99284-25; A9270-GY; J7120